=== PATIENT | female | born 1965 | race Hispanic/Latino ===

== ENCOUNTER 2024-05-18 07:44 | Day surgery (SDC) | payer OTHER ==
[2024-05-12 11:34] LABS: BASOPHILS # (AUTO) 0.03 K/uL (0.00-0.20); BASOPHILS % (AUTO) 0.3 % (0.0-5.0); EOSINOPHILS # (AUTO) 0.09 K/uL (0.00-0.70); EOSINOPHILS % (AUTO) 0.9 % (0.0-8.0); HEMATOCRIT 35.1 % (36-48); IMMATURE GRANULOCYTE ABSOLUTE 0.03 K/uL (0-1); LYMPHOCYTES % (AUTO) 31.7 % (21.0-51.0); MEAN CORPUSCULAR HEMOGLOBIN 27.9 pg (27.0-33.0); MEAN CORPUSCULAR HGB CONC 32.8 g/dL (32.0-36.0); MEAN CORPUSCULAR VOLUME 85.2 fL (79-99); MONOCYTES # (AUTO) 0.7 K/uL (0.1-1.0); MONOCYTES % (AUTO) 6.8 % (3.0-13.0); NEUTROPHILS # (AUTO) 5.8 K/uL (1.8-7.7); PLATELET COUNT (AUTO) 246 K/uL (130-400); RED BLOOD CELL COUNT(AUTO) 4.12 MIL/uL (4.00-5.50); RED CELL DISTRIBUTION WIDTH 13.2 % (11.0-15.5); WHITE BLOOD COUNT (AUTO) 9.6 K/uL (4.8-10.8)
[2024-05-12 11:42] LABS: CREATININE 0.8 mg/dL (0.5-1.0); POTASSIUM 3.5 mmol/L (3.5-5.1)
[2024-05-12 11:52] LABS: APPEARANCE,URINE CLEAR (CLEAR); BILIRUBIN,URINE NEGATIVE (NEGATIVE); COLOR,URINE LIGHT-YELLOW (YELLOW); GLUCOSE, URINE (UA) NEGATIVE (NEGATIVE); KETONES,URINE NEGATIVE (NEGATIVE); LEUKOCYTE ESTERASE ,URINE NEGATIVE Leu/uL (NEGATIVE); NITRATE,URINE NEGATIVE (NEGATIVE); OCCULT BLOOD,URINE MODERATE (NEGATIVE); PROTEIN,URINE 10 mg/dL (NEGATIVE); UROBILINOGEN,URINE 0.2 mg/dL (0.2-1.0)
[2024-05-12 11:54] LABS: ADD UA MICROSCOPIC YES
[2024-05-12 12:00] LABS: INR <= 0.93 (0.85-1.15); PROTHROMBIN TIME 9.7 SEC (9.6-11.6)
[2024-05-12 12:01] LABS: PARTIAL THROMBOPLASTIN TIME 24.9 SEC (26.3-35.5)
[2024-05-12 12:19] LABS: MUCUS,URINE RARE LPF (None Seen); SQUAMOUS EPITHELIAL CELL,UR FEW /HPF (0-2); WBC,URINE 0-1 /HPF (0-1)
[2024-05-12 13:16] VITALS: BP 116/65; PULSE 64; RESP 16
[2024-05-18] VITALS (17 sets, daily range): BP systolic 116–146; BP diastolic 66–83; PULSE 65–88; RESP 15–18
[~2024-05-18] VITALS: Ht 157.5 cm; Wt 72.4 kg
[~2024-05-18 07:44] MED LIST: CHOL100034 PO; MONT-39 PO; MORINGA PO; PANT20TA18 PO; ROSU10TA72 PO
[2024-05-18] MEDS: LACTATED RINGERS 1000ML 1,000 ML IV ONE (09:09)
[2024-05-18] MEDS: GENTAmicin 80 MG/NS 100 ML PB 100 ML IV ONE (09:09)
[2024-05-18] MEDS: ceFAZolin SODIUM 2 GM VIAL ONE (09:09)
[2024-05-18] MEDS ORDERED: MIDAZOLAM HCL 1 MG/ML 2ML VIAL ONE (10:14)
[2024-05-18] MEDS ORDERED: FENTanyl CITRate PF 50 MCG/1 ML 2ML VIAL ONE (10:15)
[2024-05-18] MEDS ORDERED: LIDOCAINE PF 100MG/5ML (2%) SYRINGE 5ML ONE (10:15)
[2024-05-18] MEDS ORDERED: rocuRONium bROMide 10MG/1ML 5ML VL ONE (10:16)
[2024-05-18] MEDS ORDERED: proPOFol 10 MG/ML 20ML VIAL IV ONE (10:16)
[2024-05-18] MEDS ORDERED: PHENYLEPHRINE HCL 10 MG/ML 1ML VIAL IV ONE (10:28)
[2024-05-18] MEDS ORDERED: ONDANSETRON 4MG INJ ONE (10:28)
[2024-05-18] MEDS ORDERED: dexaMETHasone SOD PHOSPHATE 4 MG/ML 1ML VIAL ONE (10:28)
[2024-05-18] MEDS: ESTROGENS,CONJUGATED 0.625 MG/GM 42.5 GM VAG CRM VG ONE (10:39)
[2024-05-18] MEDS: ceFAZolin SODIUM 1 GM VIAL ONE (10:39)
[2024-05-18] MEDS: LIDOCAINE 1%-EPI 1:100,000 20 ML VIAL ONE (10:39)
[2024-05-18] MEDS ORDERED: GLYCOPYRROLATE 0.2 MG/ML 5 ML VIAL ONE (10:46)
[2024-05-18] MEDS ORDERED: ePHEDrine SULFate 50 MG/ML AMPULE ONE (10:51)
[2024-05-18] MEDS ORDERED: SUGAMMADEX SODIUM 200 MG/2 ML VIAL IV ONE (11:15)
== END 2024-05-18 13:10 | disposition home or self-care (01) ==
LOC: DAH 07:44
PROVIDERS: ATTEND Urology
DX: N39.46 Mixed incontinence (principal); E66.9 Obesity, unspecified; E78.5 Hyperlipidemia, unspecified; Z79.01 Long term (current) use of anticoagulants; Z98.51 Tubal ligation status
CPT/HCPCS: 80048; 85025; 85610; 85730; 87086; 81001; 36415; 71045; 93005 ×2; 57288; A6260; J1100; A4663; J7030; A4215 ×2; A4344; C1771; J7120; J3010; J0690 ×2; J3490 ×4; J2001; J2250; J2704; J2405; J2371; J1580; A4649; A4930; A4222; A4221; A4223 ×2; A4600; G0168